=== PATIENT | female | born 1935 | race Caucasian/White ===

== ENCOUNTER 2019-01-28 17:36 | Inpatient (IN) | payer OTHER, BC ==
[~2019-01-28] VITALS: Ht 162.6 cm; Wt 83.1 kg
--- NOTE | ~2019-01-28 | D ---
[facility] [place] [address] DISCHARGE SUMMARY Name: MARY SERRANO Room #: 215-P [facility] IN M.R.#: [id number] Admission: 01/28/19 Attend Phys: Meena Izaguirre MD Discharge: 01/29/19 Date of : 37 Report #: [id number] THIS REPORT FOR: //name// CC: Dr. Alayna Crenshaw MD [facility] physician/PCP Meena Izaguirre DATE OF SERVICE: 01/29/2019 PRIMARY CARE PHYSICIAN: Dr. Crenshaw at [facility]. PRIMARY MULTI PURPOSE MACHINE OPERATOR: Dr. Catalan at [facility]. ADMISSION DIAGNOSIS: Chest pain. OPERATIONS AND PROCEDURES DONE DURING THIS HOSPITAL STAY: 1. Nuclear medicine cardiac stress test. 2. Echocardiogram. 3. CCU monitoring. 4. Cardiology's consult. CONTUSION OF STRESS TEST: 1. ECG findings were negative for ischemia. Clinical findings were nondiagnostic, nuclear findings were negative for ischemia, exercise capacity was not assess, left ventricular function was noted to be normal and risk study was low probability with normal global and segmental LV systolic function noted. 2. Echocardiogram. 3. Renal ultrasound. 4. CCU monitoring. The results of renal ultrasound, large left renal cyst and bilateral small nonobstructing renal calculi. For detailed history and physical examination, please see the admission note by Ms. Angeles Meléndez, dictated on 01/28/2019. The patient was admitted at 9:00 p.m. and admission diagnoses were. 1. Chest pain with mildly elevated troponin of 0.07 with moderate risk factors. 2. Paroxysmal atrial fibrillation with rate controlled. 3. History of sick sinus syndrome with pacemaker placement, recent interrogation done by primary counter tender. 4. Diabetes mellitus type 2. 5. Hypertension. 6. History of prior cerebrovascular with residual left-sided weakness. 7. Hypothyroidism and the patient is FULL CODE. [facility] [address] [place] [address] DISCHARGE SUMMARY Name: MARY SERRANO Room #: 215-P [facility] IN [facility].#: [id number] Admission: 01/28/19 Attend Phys: Meena Izaguirre MD Discharge: 01/29/19 Date of : 37 Report #: [id number] HOSPITAL COURSE: The patient was admitted to the CCU for troponin monitoring and unstable angina or atypical chest pain symptoms. Protocol was started by the nurse practitioner personal injury legal assistant at night and the patient was seen by Cardiology team in the morning. The patient described her chest pain as mid back pain radiating into her chest down to her arm and left side of the neck and it started while she was sitting up and watching TV and it was more like a chest pressure or tightness rather than pain. The patient has had similar chest symptoms when she had elevated blood pressure or increased heart rate with her atrial fibrillation and her blood pressure at home was 180/90. The patient informed that she also felt a little short-winded at the time of chest pressure. The symptoms were significant enough that she was brought to the Emergency Room by her daughter for further evaluation. The patient had been following with Dr. Catalan and last appointment was 6 months ago and next is in February 2019. The patient has had a recent stress test within the last year; however, does not recall the exact timeline, but has not seen Dr. Catalan for at least 6 months or more. The patient had been recently treated for bronchitis and had completed the course of antibiotics and her cough and pleuritic chest pain has significantly improved and at this time, she denies any pleuritic chest pain and has not had any fever, chills, night sweats, nausea, vomiting, diarrhea, hematochezia or melena. The patient has not had any dizziness, lightheadedness and review of system was also negative for any symptoms, dysuria, hematuria or any weakness or numbness of any part of the body other than the residual left-sided weakness and she has been using walker at home and has been ambulating and had been comfortable. She has been off of anticoagulation since the pacemaker was placed and has not had any TIA or chest pain events since then. ALLERGIES: The patient has allergies to APIXABAN, CARVEDILOL, METOPROLOL and STATIN. CURRENT MEDICATIONS: 1. Aspirin 81 mg daily. 2. Digoxin 125 mcg daily. 3. Diltiazem 240 mg extended release daily. 4. Tikosyn or dofetilide 0.25 mcg twice a day. 5. Insulin 70/30, 28 units twice a day. 6. Levothyroxine 50 mcg daily. 7. Lisinopril 2.5 mg tablets daily. 8. Potassium chloride 10 mEq daily. 9. Tramadol 1 tablet p.o. b.i.d., 50 mg p.r.n. needed for pain. The patient was seen by Dr. Hendrix and echo was done and the highest troponin was 0.08. The patient did not have any recurrence of symptoms and actually after the echo and a stress test were done, the patient finally had something to eat and was scheduled for her insulin Lantus as well as regular, but the patient refused to get Lantus and she wanted 70/30 only and she wanted [address] [address] DISCHARGE SUMMARY Name: MARY SERRANO Room #: 215-P DIS IN M.R.#: [id number] Admission: 01/28/19 Attend Phys: Meena Izaguirre MD Discharge: 01/29/19 Date of : 37 Report #: [id number] double the dose of 28 units; however, with the risk of hypoglycemia and 5:36 in the evening, the double dose of 28 units. The nurse felt uncomfortable and she informed the patient that she would go ahead and give 28 units of 70/30 what she is scheduled to. However, the patient got very upset because her sugars have been in 200 range and she felt like she should have gotten the morning dose of 70/30, even though she was n.p.o. after midnight. The patient was very unhappy and did not want to work with the nurse she was assigned to and so the charge nurse was working with the patient when I visited the patient in the evening. I had visited the patient several times in the daytime; however, she was gone for echocardiogram for signs and the second time, she was gone for nuclear stress test visited with her and informed her about cardiac workup being done and that I would come and visit once the patient is back in her room. The patient was very unhappy with her care because of not receiving insulin this morning and she told me that last night before she came to the hospital, she had not taken her insulin dose either and that way she has missed two doses and she absolutely wants to go home, so she can double her dose by herself and take care of her diabetes by herself, but she does not feel that this hospital has provided her proper care and because the patient was cleared by Cardiology and has had vital signs within normal limits and the patient had blood pressure 147/53, heart rate 59, respirations 18 and temperature 36.3 and 99% on room air oxygen for oxygen telemetry. The patient's physical exam was also within normal limits and therefore, I discharged the patient to go home with close followup with Dr. Crenshaw as well as with Dr. Catalan. 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 Next, repeat EKG showed atrial paced complexes with prolonged [place] interval and anteroseptal infarct with age indeterminate and DEXA scan has already been described above in procedures performed during this hospital stay. An echocardiogram was done and it indicated left ventricle normal in size with 70% ejection fraction and right ventricle normal size with normal function, mildly dilated left atrium and mildly dilated right atrium and aortic valve was calcified with [id number] aortic regurgitation and maximum pressure gradient of 19 mmHg. 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 DISCHARGE MEDICATIONS: 1. Aspirin 81 mg enteric coated daily. 2. Vitamin D3 daily. 3. Digoxin 125 mcg daily. 4. Diltiazem extended release 180 mg daily. 5. Tikosyn [address] [facility] [address] [place] [address] DISCHARGE SUMMARY Name: MARY SERRANO Room #: 215-P DIS IN M.R.#: [id number] Admission: 01/28/19 Attend Phys: Meena Izaguirre MD Discharge: 01/29/19 Date of : 37 Report #: [id number] 6. Insulin 70/30, 28 units twice daily. 7. Levothyroxine 50 mcg daily. 8. Lisinopril 2.5 mg daily. 9. Potassium 10 mEq daily. 10. Tramadol 50 mg daily. The patient was to see PCP within 72 hours of discharge and counter tender in 1-2 weeks. DISCHARGE LABORATORY DATA: Significant for WBC 8.7, hemoglobin 14.9, hematocrit 43.9 and platelet count 293 with normal red cell indices and normal differential. Next, chemistries at the time of discharge indicated at the time of admission were sodium 136, potassium 5.2, chloride 99, bicarbonate 26, BUN 18, creatinine 0.7, GFR 80 and glucose readings, hemoglobin A1c was 7.8 and estimated average glucose was 177. During this hospital stay, the patient had glucose between 200-300 range and no episodes of hypoglycemia were noted. The patient had an AST of 16 and ALT of 16 as well with alkaline phosphatase 102. All were within normal limits and albumin was 3.9, total protein 8.3 and troponin I was 0.07 and 0.09. More than 30 minutes were spent in this dictation summary and chart review. By: 0935 1142 Meena Izaguirre MD /nt
[2019-01-28 17:37] VITALS: BP 110/68
[2019-01-28 18:02] LABS: ABSOLUTE NEUTROPHILS 6.3 thou/uL (1.4-8.2); EOSINOPHILS 0.8 % (0.0-3.0); HEMATOCRIT 43.9 % (37.0-47.0); HEMOGLOBIN 14.9 gm/dL (12.0-15.0); LYMPHOCYTES 18.7 % (24.0-44.0); MCH 31.8 pg (26.0-34.0); MCHC 33.9 g/dL (28.0-37.0); MCV 93.8 fL (80.0-100.0); MONOCYTES 6.9 % (1.0-8.0); PLATELET COUNT 293 thou/uL (150-400); POLYS 72.6 % (36.0-66.0); RBC 4.67 mil/uL (4.20-5.00); RDW 13.8 % (10.5-14.5); WBC 8.7 thou/uL (4.0-11.0)
[2019-01-28 18:10] LABS: CALCIUM 10.1 mg/dL (8.5-10.1); CREATININE 0.7 mg/dL (0.6-1.0); POTASSIUM 4.3 mmol/L (3.5-5.1)
[2019-01-28 18:29] LABS: ALBUMIN 3.9 g/dL (3.4-5.0); TOTAL BILIRUBIN 0.3 mg/dL (<0.1-1.0); TOTAL PROTEIN 8.3 g/dL (6.4-8.2); TROPONIN-I 0.07 ng/mL (<0.06)
[2019-01-28 19:58] VITALS: BP 108/65
[2019-01-28] MEDS ORDERED: ASA81BEC PO (20:04)
[2019-01-28] MEDS ORDERED: VITAMIN D35000 UNI2 PO (20:05)
[2019-01-28] MEDS ORDERED: DIGOX125 MCG PO (20:05)
[2019-01-28] MEDS ORDERED: DILTIAZEM ER180 M2 PO (20:06)
[2019-01-28] MEDS ORDERED: TIKOSYN250 MCG PO (20:07)
[2019-01-28] MEDS ORDERED: NOVOLIN 70100 UNIT/3 SUBQ (20:08)
[2019-01-28] MEDS ORDERED: SYNTHROID88 MC1 PO (20:10)
[2019-01-28] MEDS ORDERED: LISINOPRIL2.5 MG PO (20:11)
[2019-01-28] MEDS ORDERED: KLOR-CON 10 ER10 MEQ PO (20:12)
[2019-01-28] MEDS ORDERED: TRAMADOL 50 MG50 MG PO (20:12)
[2019-01-28 20:42] VITALS: BP 108/65
[2019-01-28 21:02] VITALS: BP 108/65
[2019-01-28 22:15] VITALS: BP 163/63
[2019-01-28 22:58] LABS: CHOLESTEROL 231 mg/dL (<200); HDL CHOLESTEROL 43 mg/dL (>40); LDL CHOLESTEROL 145 mg/dL (<100); TC:HDL 5.4 Ratio (Not establshd); TRIGLYCERIDE 215 mg/dL (<150); VLDL 43 mg/dL (<40)
[2019-01-28 23:00] LABS: SERUM ASSESSMENT Clear
--- NOTE | 2019-01-29 01:31 | NUR ---
RECIEVED PT FROM ED UPONARRIVAL TO ROOM 215 [facility] [employer] PLACED ON SHOWS APACED PT C/O HEAD PAIN AND CHEST PAIN , CUSTOM DRESSMAKER CALLED ORDERED RECIEVED FOR MORPHINE, ASSESSMNET COMPLETED AND DATA BASE COMPLETED WITH AND DAUGHTER ASSISTANCE. DISCUSSED PLAN OF CARE VEBRNALIZED UNDERSTANDING AND AGREEMENT. WILL CONITNUE TO MONITOR AND REPORT CHANGES.
[2019-01-29 03:48] VITALS: BP 150/57
[2019-01-29 05:50] LABS: CALCIUM 9.2 mg/dL (8.5-10.1); CREATININE 0.7 mg/dL (0.6-1.0); POTASSIUM 5.2 mmol/L (3.5-5.1)
[2019-01-29 08:15] VITALS: BP 129/54
--- NOTE | 2019-01-29 09:47 | EKG ---
[address] [address] ELECTROCARDIOGRAM REPORT Name: MARY SERRANO Room #: 215-P ADM IN M.R.#: [id number] Admission: 01/28/19 Attend Phys: Meena Izaguirre MD Discharge: Date of : 36 Report #: [id number] THIS REPORT FOR: //name// [facility] Test Date: 2019-01-29 Test Time: 07:08:52 Pat Name: MARY SERRANO Department: Room: 215 P Gender: F Process Mold Technician: Mary MARTINEZ : 1935 Requested By: Angeles Meléndez Order Number: [id number] MD: Peter Echeverria Measurements Intervals [place] Rate: 60 P: PA: 310 QRS: 0 QRSD: 96 T: 54 QT: 439 QTc: 439 Interpretive Statements Atrial-paced complexes Prolonged PA interval Anteroseptal infarct, age indeterminate No previous ECG available for comparison Electronically Signed On 01-29-2019 9:46:36 JACQUARD FIXER by Peter Echeverria [email or web address] <ELECTRONICALLY SIGNED> By: Peter Echeverria MD, [facility] 01/29/19 0946 7 Peter Echeverria MD, [facility] /EPI
--- NOTE | 2019-01-29 11:39 | 2DMMODE ---
[facility] [address] [place] [address] 2 D/M-MODE ECHOCARDIOGRAM Name: MARY SERRANO Room #: 215-P ADM IN M.R.#: [id number] Admission: 01/28/19 Attend Phys: Meena Izaguirre, Discharge: Date of : 37 Report #: [id number] THIS REPORT FOR: //name// APPROVED REPORT Study performed: 01/29/2019 09:57:40 EXAM: Comprehensive 2D, Doppler, and color-flow Echocardiogram Patient Location: Bedside Room #: 215 Status: routine BSA: 1.88 HR: 60 bpm BP: 129/54 mmHg Rhythm: NSR Other Information Study Quality: Adequate Indications Diabetes Atrial Fibrillation Pacemaker Chest Pain Hypertension/HDD Hx CVA 2D Dimensions RVDd: 31.79 mm IVSd: 12.49 (7-11mm) LVOT Diam: 19.62 (18-24mm) LVDd: 45.25 mm PWd: 13.09 (7-11mm) Ascending Ao: 35.70 (22-36mm) LVDs: 27.93 (25-40mm) Aortic Root: 32.17 mm IVC: 21.00 mm Volumes Left Atrial Volume (Systole) Single Plane 4CH: 43.67 mL Single Plane 2CH: 81.48 mL LA ESV Index: 34.00 mL/m2 Aortic Valve AoV Peak Haim.: 2.17 m/s AO Peak Gr.: 18.85 mmHg LVOT Max P.30 mmHg AO Mean Gr.: 9.99 mmHg LVOT Mean P.89 mmHg AO V2 Mean: 1.46 m/s LVOT Max V: 1.15 m/s [facility] [address] [place] [address] 2 D/M-MODE ECHOCARDIOGRAM Name: MAGGIE,MARY Room #: 215-P [facility] IN ..#: [id number] Admission: 01/28/19 Attend Phys: Meena Izaguirre, Discharge: Date of : 36 Report #: [id number] V2 VTI: 41.34 cm LVOT Mean V: 0.78 m/s DENNY (VTI): 1.90 cm2 LVOT V1 VTI: 25.96 cm DENNY Vmax: 1.60 cm2 AI Vmax: 4.49 m/s SV (LVOT): 78.50 mL AI [place]: 2.44 m/s2 AI PHT: 536.20 ms Mitral Valve MV Peak Gr.: 12.09 mmHg MV Mean Gr.: 4.36 mmHg E/A Ratio: 1.8 MV Decel. Time: 347.47 ms MV E Max Haim.: 1.66 m/s MV A Haim.: 0.90 m/s MV Max Haim.: 1.74 m/s MV Mean Haim.: 0.97 m/s MV VTI: 607.48 mm MVA VTI: 129.22 mm2 MV PHT: 100.76 ms IVRT: 58.82 ms Pulmonary Valve PV Peak Haim.: 1.04 m/s PV Peak Gr.: 4.33 mmHg Pulmonary Vein P Vein S: 0.22 m/s P Vein A: 0.14 m/s P Vein D: 0.54 m/s P Vein A Dur.: 106.1 msec P Vein S/D Ratio: 0.41 Tricuspid Valve TR Peak Haim.: 2.79 m/s RAP Estimate: 5.00 mmHg TR Peak Gr.: 31.15 mmHg PA Pressure: 36.00 mmHg Left Ventricle The left ventricle is normal size. There is normal left ventricular wall thickness. Left ventricular systolic function is hyperdynamic. LVEF is 70%. Transmitral Doppler flow pattern suggests restrictive physiology. Right Ventricle The right ventricle is normal size. The right ventricular systolic function is normal. Atria Left atrium is mildly dilated. Right [place] [address] 2 D/M-MODE ECHOCARDIOGRAM Name: MARY SERRANO Room #: 215-P ADM IN M.R.#: [id number] Admission: 01/28/19 Attend Phys: Meena Izaguirre, Discharge: Date of : 37 Report #: [id number] Aortic Valve Aortic valve is mildly calcified. Mild to moderate aortic regurgitation. There is mild valvular aortic stenosis. Calculated aortic valve area is 1.9 cm2 with maximum pressure gradient of 19 mmHg and mean pressure gradient of 10 mmHg. Mitral Valve Moderate mitral annular calcification. Mild mitral regurgitation. Mild mitral stenosis with a max pressure gradient of 12 mmHg and a mean pressure gradient of 4.4 mmHg. Tricuspid Valve The tricuspid valve is normal in structure. Mild to moderate tricuspid regurgitation. PAP is estimated at 36 mmHg. Pulmonic Valve Pulmonic valve is not well visualized. Trace pulmonic regurgitation. Great Vessels The aortic root is normal in size. IVC is normal in size and collapses >50% with inspiration. Pericardium There is no pericardial effusion. <Conclusion> The left ventricle is normal size. LVEF is 70%. Left atrium is mildly dilated. Right atrium is mildly dilated. Aortic valve is mildly calcified. There is mild valvular aortic stenosis. Calculated aortic valve area is 1.9 cm2 with maximum pressure gradient of 19 mmHg and mean pressure gradient of 10 mmHg. Moderate mitral annular calcification. Mild mitral regurgitation. Mild mitral stenosis with a max pressure gradient of 12 mmHg and a mean pressure gradient of 4.4 mmHg. The tricuspid valve is normal in structure. Mild to moderate tricuspid regurgitation. PAP is estimated at 36 mmHg. Pulmonic valve is not well visualized. [facility] [address] [place] [address] 2 D/M-MODE ECHOCARDIOGRAM Name: MARY SERRANO Room #: 215-P ADM IN M.R.#: [id number] Admission: 01/28/19 Attend Phys: Meena Izaguirre, Discharge: Date of : 37 Report #: [id number] Trace pulmonic regurgitation. There is no pericardial effusion. <ELECTRONICALLY SIGNED> By: Clement Hernandez MD 01/29/19 113 38 38 Clement Hernandez MD /INF
[2019-01-29 14:30] VITALS: BP 161/58
[2019-01-29 15:25] VITALS: BP 147/53
--- NOTE | 2019-01-29 17:12 | NUR ---
PT ALERT AND ORIENTED. HAD ECHO AND NUCLEAR TEST THIS SHIFT. FAMILY UPDATED ON PT'S PROGRESS. DENIED HAVING CHEST PAIN. WILL CONTINUE TO MONITOR.
[2019-01-29 18:15] VITALS: BP 147/53
--- NOTE | 2019-01-29 19:10 | NUR ---
ORDERS GIVEN TO DISCHARGE PT TO HOME. DISCHARGE INSTRUCTIONS GIVEN TO PT. PT VERBERLISED UNDERSTANDING. PT LEFT THE FACILITY ACCOMPANIED BY THE DAUGHTER.
[2019-01-30 01:06] LABS: GLYCOHEMOGLOBIN (HGB A1C) 7.8 % (4.8-5.6)
--- NOTE | 2019-02-02 12:51 | EKG ---
[address] [address] ELECTROCARDIOGRAM REPORT Name: MARY SERRANO Room #: 215-P [facility] IN M.R.#: [id number] Admission: 01/28/19 Attend Phys: Meena Izaguirre MD Discharge: 01/29/19 Date of : 37 Report #: [id number] THIS REPORT FOR: //name// [facility] ED Test Date: 2019-01-28 Test Time: 17:41:22 Pat Name: MARY SERRANO Department: Room: [facility] Gender: F Technical Maintenance Specialist: UMM : 1935 Requested By: Dulce Maria Mccord Order Number: [id number] MD: Barrie Chavez Measurements Intervals [place] Rate: 94 P: SD: QRS: -10 QRSD: 87 T: 43 QT: 393 QTc: 492 Interpretive Statements Afib/aflutter Probable anteroseptal infarct, old No previous ECG available for comparison Electronically Signed On 02-02-2019 12:50:59 FIRE BATTALION CHIEF by Barrie hCavez [email or web address] <ELECTRONICALLY SIGNED> By: Barrie Chavez MD 02/02/19 1250 40 40 Barrie Chavez MD /SHARRI
== END 2019-01-29 19:26 | disposition home or self-care (01) | DRG 303 ==
LOC: ER 17:36 → 2N 19:42 → EROBS 19:42 → 2N 21:41
PROVIDERS: Nurse Practitioner Family; Physician Assistant; ADMIT Internal Medicine
DX: I25.110 Atherosclerotic heart disease of native coronary artery with unstable angina pectoris (principal); I69.354 Hemiplegia and hemiparesis following cerebral infarction affecting left non-dominant side; E11.9 Type 2 diabetes mellitus without complications; E03.9 Hypothyroidism, unspecified; Z96.653 Presence of artificial knee joint, bilateral; I48.0 Paroxysmal atrial fibrillation; E78.5 Hyperlipidemia, unspecified; Z95.0 Presence of cardiac pacemaker; Z88.8 Allergy status to other drugs, medicaments and biological substances; Z98.42 Cataract extraction status, left eye; Z98.41 Cataract extraction status, right eye; Z90.49 Acquired absence of other specified parts of digestive tract; Z79.82 Long term (current) use of aspirin; Z79.899 Other long term (current) drug therapy; Z82.49 Family history of ischemic heart disease and other diseases of the circulatory system; Z95.5 Presence of coronary angioplasty implant and graft
CPT/HCPCS: 10081